=== PATIENT | female | born 1960 | race Caucasian/White ===

== ENCOUNTER 2018-05-26 19:45 | Emergency (ER) | payer OTHER ==
[~2018-05-26] VITALS: Ht 167.6 cm; Wt 72.6 kg
[~2018-05-26 19:45] MED LIST: AMBIEN10 M1 PO; ASPIRIN81 M1 PO; ATIVAN1 MG PO; COZAAR100 MG PO; CRESTOR10 M1 PO; FLEXERIL10 MG PO; KLOR-CON SPRIN10 MEQ PO; LASIX20 MG PO; LEXAPRO10 MG PO; METOPROLOL50 MG PO; NEXIUM I.V.40 MG PO; PREDNICOT20 MG PO; VICODIN 5/500 505 MG PO; ZITHROMAX Z PA250 MG PO; [UNRECOGNIZED DRUG - OTHER]
== END 2018-05-26 20:25 | disposition home or self-care (01) ==
LOC: ED 19:45
DX: S61.211A Laceration without foreign body of left index finger without damage to nail, initial encounter (principal); Z88.0 Allergy status to penicillin; Z88.6 Allergy status to analgesic agent; Z91.013 Allergy to seafood; Z79.899 Other long term (current) drug therapy; Z79.82 Long term (current) use of aspirin; Z23 Encounter for immunization; W45.8XXA Other foreign body or object entering through skin, initial encounter; Y93.89 Activity, other specified; Y92.89 Other specified places as the place of occurrence of the external cause; Y99.8 Other external cause status

== ENCOUNTER → 2019-04-14 | Outpatient (CLI) | payer OTHER ==
[2019-04-15 14:08] LABS: SJOGREN ANTI-SS-A <0.2 AI (0.0-0.9); SJOREN AB, ANTI-SS-B <0.2 AI (0.0-0.9)
== END | disposition home or self-care (01) ==
LOC: LAB 14:21
PROVIDERS: Internal Medicine
DX: T28.0XXA Burn of mouth and pharynx, initial encounter (principal)

== ENCOUNTER → 2019-09-18 | Outpatient (CLI) | payer OTHER | END | disposition home or self-care (01) | LOC: RAD 14:08 | DX: R06.02 Shortness of breath (principal) ==

== ENCOUNTER → 2020-04-27 | Outpatient (CLI) | payer OTHER | END | disposition home or self-care (01) | LOC: US 04-20 08:30 | PROVIDERS: ATTEND Internal Medicine | DX: R74.8 Abnormal levels of other serum enzymes (principal); M25.532 Pain in left wrist ==

== ENCOUNTER → 2020-07-01 | Outpatient (CLI) | payer OTHER | END | disposition home or self-care (01) | LOC: US 12:17 | PROVIDERS: ATTEND Internal Medicine | DX: M71.332 Other bursal cyst, left wrist (principal) ==

== ENCOUNTER → 2021-08-29 | Outpatient (CLI) | payer OTHER | END | disposition home or self-care (01) | LOC: COVID19 16:24 | PROVIDERS: ATTEND Internal Medicine | DX: U07.1 COVID-19 (principal) ==

== ENCOUNTER → 2022-03-08 | Outpatient (CLI) | payer OTHER ==
[2022-03-08 14:38] LABS: FREE T4 0.92 ng/dl (0.76-1.46); URIC ACID 3.1 mg/dL (2.6-6.0)
[2022-03-09 11:07] LABS: RHEUMATOID FACTOR 15.6 IU/mL (<14.0)
[2022-03-09 12:07] LABS: ANTI-DSDNA ANTIBODIES <1 IU/mL (0-9)
[2022-03-11 01:06] LABS: CCP ANTIBODIES IGG/IGA 12 units (0-19)
== END | disposition home or self-care (01) ==
LOC: LAB 13:56
PROVIDERS: ATTEND Internal Medicine
DX: M25.50 Pain in unspecified joint (principal)

== ENCOUNTER → 2024-04-30 | Outpatient (CLI) | payer OTHER | END | disposition home or self-care (01) | LOC: US 09:50 | PROVIDERS: ATTEND Internal Medicine | DX: R10.11 Right upper quadrant pain (principal); R74.8 Abnormal levels of other serum enzymes ==

== ENCOUNTER → 2025-02-24 | Outpatient (CLI) | payer OTHER, MEDICARE ==
[2025-02-24 14:02] LABS: BASO # 0.1 10*3/uL (0.0-0.1); BASO % 0.9 % (0.0-1.0); EOS # 0.1 10*3/uL (0.0-0.4); EOS % 1.9 % (1.0-4.0); MEAN CELL VOLUME 88.6 fl (81.0-99.0); MEAN CORPUSCULAR HGB 28.5 pg (27.0-31.0); MEAN PLATELET VOLUME 11.9 fl (9.6-12.3); MONO # 0.5 10*3/uL (0.1-1.0); MONO % 6.6 % (3.0-9.0); NEUT # 4.3 10*3/uL (2.3-7.9); NEUT % 57.4 % (47.0-73.0); NUCLEATED RED BLOOD CELL 0.0 % (0.0-0.0); NUCLEATED RED BLOOD CELL 0.0 10*3/uL (0.0-0.0); PLATELET COUNT AUTOMATED 245 10*3/uL (130-400); RED CELL DISTRI WIDTH 14.4 % (0-14.5)
[2025-02-24 14:05] LABS: BILIRUBIN Negative (Negative); BLOOD Negative (Negative); CLARITY Clear (Clear); COLOR Yellow (Yellow); KETONE Negative (Negative); LEUKO ESTERASE Negative (Negative); NITRITE Negative (Negative); PH 7.0 (4.5-8.0); SPECIFIC GRAVITY 1.010 (1.001-1.030); UROBILINOGEN 1.0 E.U./dl (0.0-1.0)
[2025-02-24 14:19] LABS: BACTERIA TRACE; MUCOUS TRACE
[2025-02-24 14:30] LABS: BUN 9 mg/dl (9-23); FREE T4 0.95 ng/dl (0.89-1.76); LDL CHOLESTEROL 81 mg/dL (9-159); SGPT/ALT 13 U/L (5-49)
[2025-02-24 14:32] LABS: VITAMIN D, 25-HYDROXY 34.7 ng/mL (30-100)
== END | disposition home or self-care (01) ==
LOC: CT 02-13 13:00 → LAB 12:45 → CT 13:00
PROVIDERS: ATTEND Internal Medicine
DX: Z12.2 Encounter for screening for malignant neoplasm of respiratory organs (principal); R91.1 Solitary pulmonary nodule; J43.9 Emphysema, unspecified; K76.89 Other specified diseases of liver; I25.10 Atherosclerotic heart disease of native coronary artery without angina pectoris; I10 Essential (primary) hypertension; E53.8 Deficiency of other specified B group vitamins; E55.9 Vitamin D deficiency, unspecified; R39.9 Unspecified symptoms and signs involving the genitourinary system; F17.210 Nicotine dependence, cigarettes, uncomplicated

== ENCOUNTER → 2025-03-12 | Outpatient (CLI) | payer OTHER, MEDICARE | END | disposition home or self-care (01) | LOC: US 10:51 | PROVIDERS: ATTEND Internal Medicine | DX: L03.116 Cellulitis of left lower limb (principal) ==